=== PATIENT | female | born 1955 | race Caucasian/White ===

== ENCOUNTER 2025-06-19 12:41 | Emergency (ER) | payer SELFPAY ==
--- NOTE | ~2025-06-19 | XR_ITS ---
EXAMINATION: XR CHEST CLINICAL INFORMATION: trauma COMPARISON: None available. TECHNIQUE: AP view of the chest was obtained. FINDINGS: The cardiac, hilar, and mediastinal contours are normal. Lungs demonstrate mild linear atelectasis left base. Lungs otherwise clear. No pneumothorax or effusion. No focal osseous or soft tissue abnormality. No fracture evident. Moderate degenerative changes in both shoulder joints and throughout the spine. XR/XR chest 1V IMPRESSION: No acute findings in the thorax. Electronically signed by: Everette Perez MD 06/19/2025 02:21 PM EDT
--- NOTE | ~2025-06-19 | XR_ITS ---
EXAMINATION: XR KNEE 4 OR MORE VIEWS LEFT HISTORY: L knee lac COMPARISON: There are no prior studies available for comparison. FINDINGS: Four views of the left knee are submitted. Osseous mineralization is normal. There is no fracture or dislocation. The joint spaces are preserved. There is a soft tissue injury involving the popliteal fossa. It is no joint effusion. XR/XR knee LT 4V IMPRESSION: Soft tissue injury involving the popliteal fossa. No osseous abnormality is identified. Electronically signed by: Berry Urbano MD 06/19/2025 02:21 PM EDT
[2025-06-19 12:48] VITALS: BP 184/130; PULSE 120
--- NOTE | 2025-06-19 12:52 | ECG_ITS ---
Test Reason : TACHYCARDIA Blood Pressure : */* mmHG Vent. Rate : 119 BPM Atrial Rate : 119 BPM P-R Int : 104 ms QRS Dur : 80 ms QT Int : 330 ms P-R-T Axes : * 15 15 degrees QTcB Int : 465 ms Sinus tachycardia with short LA Nonspecific ST abnormality Abnormal ECG No previous ECGs available Referred By: Generic ED Physician Electronically Signed By: JOURDAN TODD
[2025-06-19 12:57] VITALS: BP 179/113; PULSE 118; RESP 18; TEMP 36.5; O2SAT 93; BMI 31.0
[2025-06-19 13:18] VITALS: BP 179/113; PULSE 118; RESP 18; TEMP 36.5; O2SAT 93
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
[2025-06-19 14:00] VITALS: BP 168/90; PULSE 100; RESP 16; TEMP 36.5; O2SAT 94
[2025-06-19 14:06] LABS: MANUAL DIFF FLAG NO
[2025-06-19 14:08] LABS: Hematocrit 43.2 % (37.0-47.0); Hemoglobin 15.4 g/dl (12.0-16.0); Imm Gran Abs Auto 0.02 X10*3/uL (0.00-0.03); Imm Gran Pct Auto 0.3 % (0.0-0.4); Lymphocytes Absolute Auto 1.3 X10*3/uL (1.2-4.9); Mean Corpuscular HGB Conc 35.6 g/dl (31.0-35.0); Mean Corpuscular Hemoglobin 36.1 pg (27.0-33.0); Mean Corpuscular Volume 101.2 fL (80.0-98.0); NRBC Abs Auto 0.000 X10*3/uL (0.0-0.012); NRBC Pct Auto 0.0 /100WBC (0.0-0.2); Platelet Count 308 X10*3/uL (160-400); Red Blood Count 4.27 X10*6/uL (4.20-5.50); White Blood Count 7.3 X10*3/uL (4.8-10.8)
[2025-06-19 14:24] LABS: Alanine Aminotransferase 14 U/L (0-31); Albumin Level 4.1 g/dL (3.5-5.0); Alkaline Phosphatase 94 U/L (39-117); Anion Gap 13 (12-20); Aspartate Amino Transferase 17 U/L (5-31); Blood Urea Nitrogen 6 mg/dL (9-16); Calcium 7.8 mg/dL (8.4-10.2); Carbon Dioxide 25 mmol/L (22-29); Chloride 105 mmol/L (96-108); Creatinine Clr Calc Pharmacy 111.9; Estimated Glomerular Filt Rate > 60; Potassium 3.3 mmol/L (3.3-5.1); Sodium 140 mmol/L (135-145); Total Protein 6.9 g/dL (6.5-8.0)
--- OUTSIDE RECORDS SUMMARY | 2025-06-19 14:37 | XMS_ITS | Encounter Summary ---
Author Organization [facility] Address [address] [place] [address] Phone Care Team Providers Care Wharf Attendant Name Role Phone Larisa Shelley MD Unavailable [phone] Erik Wesley MD Unavailable [phone] Samaria Mayers TITLE SEARCH MANAGER Unavailable [phone] Samaria Mayers TITLE SEARCH MANAGER Primary Care Provider [phone] Erik Wesley MD Unavailable [phone] Unknown, Unknown Primary Care Provider Og medrano Encounter Details Date Type Department Care Team (Late st Contact Info) Description 05/12/2021 Procedure Pass [facility], Ct Scan - [address] [address] Social History Tobacco Use Types Packs/Day Years Used Date Smoking Tobacco: Former Cigarettes 0.5 10 0 11/23/2001 - 11/23/2011 Smokeless Tobacco: Never Alcohol Use Standard Drinks/Week Comments Yes 7 (1 standard drink = 0.6 oz pur e alcohol) 1 wine cooler daily Child or Family Care Answer Date Record ed Do you have problems with on e of the following making it difficult for you to work, study, or receive health care? No 05/12/2021 Education Answer Date Recorded Are you interested in help w ith more adult education (for example, completing high school, GED, job training, learning the Bengali language, technical skills, or developing parenting skills)? No 05/12/2021 Are you concerned about learning? Not on file 05/12/2021 Not on file 05/12/2021 Not on file 05/12/2021 Food Answer Date Recorded Within the past 6 months we worried whether our food would run out before we got money to buy more. Never True 05/12/2021 Within the past 6 months the food we bought just didn't last and we didn't have enough money to get more. Never True Paying for Meds Answer Date Recorded Do you have trouble paying for medicines? No 05/12/2021 Paying Utility Bills Answer Date Record ed Do you have trouble paying your heating or elect ricity bill? No 05/12/2021 Transportation Answer Date Recorded Has the lack of transportati on kept you from medical appointments or from getting medications? No 05/12/2021 Comments Unknown Sex and Gender Information Value Date Recorded Sex Assigned at Female 06/23/2021 6:03 PM EDT Legal Sex Female 9:52 PM EDT Gender Identity Not on file Sexual Orientation Not on file documented as of this encounter Plan of Treatment Not on file documented as of this encounter Visit Diagnoses Not on filedocumented in this encounter Additional Health Concerns Assessment Noted Time PHQ-2 Depression Total Score: 0 05/12/20 9:58 AM EDT documented as of this encounter Care Teams Wharf Attendant Relationship Specialty Start Date End Date Samaria Mayers NP [address] [place] [address] juan PCP - General Family Medicine 05/14/18 12/31/23 Unknown, Love, PCP - General 01/01/24 Larisa Shelley MD [address] [place] [address] Historical LMR Provider 08/07/17 2 Erik Wesley MD [address] [place] [address] Historical LMR Provider 08/07/17 Samaria Mayers NP [address] [place] [address] juan [email or web address] Historical LMR Provider 08/07/17 Erik Wesley MD [address] [place] [address] [email or web address] Insurance Assigned Provider 08/29/20 01/29/22 documented as of this encounter Additional Source Comments The information contained in this document represents components of the legal health record. It is not the complete legal health record.[facility]
--- OUTSIDE RECORDS SUMMARY | 2025-06-19 14:37 | XMS_ITS | Encounter Summary ---
Author Organization [facility] Address [address] [place] [address] Phone Care Team Providers Care Real Estate Processor Name Role Phone Larisa Shelley MD Unavailable [phone] Erik Wesley MD Unavailable [phone] Samaria Mayers ALL PURPOSE CLERK Unavailable [phone] Samaria Mayers ALL PURPOSE CLERK Primary Care Provider [phone] Erik Wesley MD Unavailable [phone] Unknown, Unknown Primary Care Provider Og medrano Encounter Details Date Type Department Care Team (Late st Contact Info) Description 06/23/2021 Procedure Pass [facility], Ct Scan - [address] [address] Social History Tobacco Use Types Packs/Day Years [...] high school, GED, job training, learning the Kazakh language, technical skills, or developing parenting skills)? [...] on file documented as of this encounter Functional Status * Calculated C-SSRS Risk Score (Lifetime/Recent) Answer Date of Assessment Author No Risk Indicated 06/23/2021 6:01 PM EDT Nahun Miranda RN * Whiteside Suicide Severity Rating Scale (Screener/Recent Self-Report) Question Answer Date of Assessment Author 1. Wish to be (Past 1 Month) No 021 6:01 PM EDT Nahun Miranda RN 2. Non-Specific Active Suici jose manuel Thoughts (Past 1 Month) No 06/23/2021 6:01 PM EDT Lico Miranda RN 6. Suicidal Behavior (Lifetime) No 6:01 PM EDT Nahun Miranda RN documented as of this encounter Plan of Treatment Not on file documented as of this encounter Visit Diagnoses Not on filedocumented in this encounter Additional Health Concerns Assessment Noted Time PHQ-2 Depression Total Score: 0 05/12/20 9:58 AM EDT documented as of this encounter Care Teams Real Estate Processor Relationship Specialty Start Date End Date Samaria Mayers NP [address] [place] [address] juan PCP - General Family Medicine 05/14/18 12/31/23 Unknown, Love, PCP - General 01/01/24 Larisa Shelley MD [address] [place] [address] Historical LMR Provider 08/07/17 2 Erik Wesley MD [address] [place] [address] Historical LMR Provider 08/07/17 Samaria Mayers NP [address] [place] [address] juan Historical LMR Provider 08/07/17 Erik Wesley MD [address] [place] [address] Insurance Assigned Provider 08/29/20 01/29/22 documented as of this encounter Additional Source Comments The information contained in this document represents components of the legal health record. It is not the complete legal health record.[facility]
--- OUTSIDE RECORDS SUMMARY | 2025-06-19 14:37 | XMS_ITS | Clinical Summary ---
Author Organization [facility] Address [address] [place] [address] Phone Care Team Providers Care Bale Breaker Operator Name Role Phone Erik Wesley MD Unavailable [phone] Samaria Mayers NP Unavailable [phone] Unknown, Unknown Primary Care Provider Og medrano Allergies Active Allergy Reactions Criticality Noted Date Comments Sulfa (Sulfonamide Antibiotics) Hives 04/22 Medications omega-3 fatty acids-fish oil 340-1,000 mg Cap Take 1 capsule by mouth 2 (two) times a day. Active albuterol 90 mcg/actuation inhaler Inhale 2 puffs into the lungs every 6 (six) hours as needed for wheezing or shortness of breath/dyspnea . 8 g 1 Active calcium carbonate (OS-RODNEY) 1,250 mg (500 mg elemental) tablet Take 1 tablet (1,250 mg total) by mouth 2 (two) times a day with meals. 60 tablet 1 Active cholecalciferol (VITAMIN D3) 25 MCG (1,000 unit) tablet Take 1 tablet (1,000 Units total) by mouth daily. 30 tablet 6 1 Active atorvastatin (LIPITOR) 40 MG tabletIndications: Mixed hyperlipidemia TAKE 1 TABLET BY MOUTH EVERY DAY 90 tablet 3 Active SPIRIVA WITH HANDIHALER 18 mcg inhalation capsuleIndications :Chronic obstructive pulmonary disease INHALE 1 CAPSULE VIA HANDIHALER ONCE DAILY AT THE SAME TIME EVERY DAY 90 capsule 1 3 Active betamethasone dipropionate 0.05 % ointment Apply topically 2 (two) times a day. To rash on neck 30 g 3 Active albuterol 90 mcg/actuation inhalerIndications :Chronic obstructive pulmonary disease INHALE 2 PUFFS INTO THE LUNGS EVERY 4 HOURS NEEDED FOR WHEEZE 8.5 g 1 3 Active albuterol 90 mcg/actuation inhaler Inhale 2 puffs into the lungs every 6 (six) hours as needed for wheezing. 8 g 2 3 Active Active Problems Problem Noted Date Diagnosed Date Azotemia 06/24/2021 Assessment & Plan (06/25/2021 5:51 PM EDT): Etiology: It is possible that the patient had a slight dehydration episode which resulted in uremia which then in turn caused further nausea and vomiting and precipitated an acute azotemia. Thankfully, the patient's BUN and creatinine have improved with IV fluids, her mental status is improved today but her oral intake remains poor and she still had ongoing nausea this morning with breakfast. A CT scan of her head revealed no hydrocephalus, no malignancy appearance but with diffuse calcifications throughout the brain which are nonspecific. Nutrition consultation appreciated, attempting to advance the patient's diet and monitor for p.o. intake improvement. Once the patient is able to maintain her nutrition and volume status, can be discharged home for outpatient follow-up. Hopeful that the patient will be able to be discharged tomorrow after another day of monitoring, monitoring intake with dinner and then if tomorrow she is feeling well can go home. She denies abdominal pain, denies ongoing nausea. Morning cortisol was normal, PTH was elevated, ionized calcium was low, repeat calcium on BMP improving. Renal ultrasound was normal Sodium is stable at 136 Hyperphosphatemia 06/24/2021 Assessment & Plan (06/25/2021 5:52 PM EDT): S/p IVF, improved Vitamin D is low so will replete orally Replete calcium and phos, recheck with labs tomorrow H/O prolonged Q-T interval on ECG 05/12/2021 Impaired fasting glucose 05/12/2021 Chronic obstructive pulmonary disease 05/10/2018 Assessment & Plan (06/24/2021 5:26 PM EDT): Continue home meds Essential hypertension 05/10/2018 Assessment & Plan (06/24/2021 5:26 PM EDT): BP low here Hold home meds History of smoking 05/10/2018 Mixed hyperlipidemia 05/10/2018 Immunizations Immunization Administration Dates Next Due COVID-19 (Pre-08/14) Moderna Vaccine, mRNA, PF 0 03/24/2021,02/24/2021 INFLUENZA, SPLIT VIRUS, TRIVALENT W/ PRESERVATIV E IM 10/19/2015 Influenza Quadrivalent Preservative Free IM 12/2019 Influenza, Unspecified Formulation 07/25/2020 PPD Test 06/11/2018 Pneumococcal conjugate PCV13 05/08/2020 Pneumococcal polysaccharide PPSV23 05/12/2021 Td (adult) 5 Lf Tetanus Toxoid, PF, Adsorbed Tdap 06/01/2012 Zoster recombinant 07/25/2020 Family History Medical History Relation Comments No Known Problems Brother Alcohol abuse Father smoker Cancer Father at 66 Breast cancer Mother at 44 Cancer Mother Alcohol abuse Sister 1 Liver disease Sister 1 COPD Sister 2 No Known Problems Son 1 No Known Problems Son 2 Relation Status Comments Brother Alive Father Mother Sister 1 Sister 2 Alive Son 1 Alive 41 Son 2 Alive 43 Social History Tobacco Use Types Packs/Day Years Used Date Smoking Tobacco: Former Cigarettes 0.3 40 0 11/23/1971 - 11/23/2011 Smokeless Tobacco: Never Alcohol Use Standard Drinks/Week Comments Yes 7 (1 standard drink = 0.6 oz pur e alcohol) 1 beer daily Child or Family Care Answer Date Record ed Do you have problems with on e of the following making it difficult for you to work, study, or receive health care? No 01/04/2023 Education Answer Date Recorded Are you interested in more education? Not on hayde e 01/04/2025 Are you concerned about learning? Not on file 01/04/2025 No 01/04/2025 No 01/04/2025 Food Answer Date Recorded Within the past 6 months we worried whether our food would run out before we got money to buy more. Sometimes True 023 Within the past 6 months the food we bought just didn't last and we didn't have enough money to get more. Never True 12/21 Residential Stability Answer Date Recor ded What is your housing situation today? I have mary penaloza 01/04/2023 How many times have you move d in the past 12 months? Zero (I did not move) 01/04/2023 Paying for Meds Answer Date Recorded Do you have trouble paying for medicines? No 01/04/2023 Paying Utility Bills Answer Date Record ed Do you have trouble paying your heating or elect ricity bill? No 01/04/2023 Transportation Answer Date Recorded Has the lack of transportati on kept you from medical appointments or from getting medications? No 01/04/2023 Unemployment Answer Date Recorded Are you currently unemployed or working on a part-time or temporary basis, and looking for work? No 01/04/2023 Digital Access Answer Date Recorded No 03/20/2023 No 03/20/2023 Reliable internet access at home? Not on file 03/20/2023 Device with a working camera? Not on file Intimate Partner Violence Answer Date R ecorded Denied Basic Needs Not on file 01/04/2023 In the past 12 months have y ou been in a relationship with a person who hurts, threatens, or tries to control you? No 01/04/2023 Worried food would run out Not on file 01/04 In the past 12 months have y ou been in a relationship with a person who hurts, threatens, or tries to control you? No 01/04/2023 Comments Unknown Sex and Gender Information Value Date Recorded Sex Assigned at Female 06/23/2021 6:03 PM EDT Legal Sex Female 9:52 PM EDT Gender Identity Not on file Sexual Orientation Not on file Last Filed Vital Signs Vital Sign Reading Time Taken Comments Blood Pressure 128/78 01/04/2023 11:16 AM EDT Pulse 61 01/04/2023 11:16 AM EDT Temperature 36.7 C (98 F) 01/04/2023 11:16 AM EDT Respiratory Rate 16 06/26/2021 9:28 AM EDT Oxygen Saturation 97% 01/04/2023 11:16 AM EDT Inhaled Oxygen Concentration - - Weight 92.5 kg (204 lb) 01/04/2023 11:16 AM EDT Height 169.5 cm (5' 6.73 ) 01/04/2023 11:16 AM E DT Body Mass Index 32.21 01/04/2023 11:16 AM EDT Plan of Treatment Health Maintenance Due Date Last Done Comments SMOKING Hx and SMOKELESS TOBACCO SCREENING 1970 COLONOSCOPY 2002 FIT TEST 2002 FOBT 2002 SIGMOIDOSCOPY 2002 VIRTUAL COLONOSCOPY 2002 RSV VACCINE (1 - Risk 60-74 years 1-dose series) 2017 ZOSTER VACCINES (2 of 2) 09/19/2020 07/25/2020 OSTEOPOROSIS SCREENING INITIAL (ONE-TIME) 2022 BLOOD PRESSURE 07/07/2023 01/04/2023 DEPRESSION SCREENING 01/05/2024 01/04/2023 COLOGUARD 06/11/2024 06/11/2021 COLORECTAL CANCER SCREENING 06/11/2024 COVID-19 VACCINE ( season) 2024 11/15/2021, 03/24/2021, 02/24/2021 MAMMOGRAM 01/04/2025 01/04/2023 SCREENING FOR DIABETES 01/04/2026 01/04/2023, 2022 PNEUMOCOCCAL VACCINES (50+ years) (3 of 3 - PCV20 or PCV21) 05/12/2026 05/12/2021, 05/08/2020 LIPID PANEL 01/05/2028 01/04/2023, 04/23, 05/12/2021, Additional history exists PAP SMEAR 01/05/2028 01/04/2023, 04/27/2017 Adult Td,Tdap Booster 01/04/2033 01/04/2023, 012 HEPATITIS C SCREENING Completed 05/08/2020, 020 HEPATITIS A VACCINES Aged Out No long er eligible based on patient's age to complete this topic HIB VACCINES Aged Out No longer eligi ble based on patient's age to complete this topic MENINGOCOCCAL VACCINES (ACWY) Aged Out No longer eligible based on patient's age to complete this topic MENINGOCOCCAL VACCINES (B) Aged Out N o longer eligible based on patient's age to complete this topic Medical Devices Not on file Procedures Procedure Name Priority Date/Time Associated Diagnosis Comments LIPID PANEL Routine 01/04/2023 12:17 PM EDT Mixed hyperlipidemia BI MAMMOGRAM SCREENING (BILATERAL) Routine 01/04/2023 11:55 AM EDT Encounter for screening mammogram for malignant neoplasm of breast PAP TEST Routine 01/04/2023 12:00 AM EDT HEPATITIS C ANTIBODY, QUALITATIVE Routine 05/08/2020 10:38 AM EDT Routine general medical examination at a [facility] care facility from Last 3 Months or Most Recently Relevant to Health Maintenance Results * (ABNORMAL) Lipid panel (01/04/2023 12:17 PM EDT) HDL 45 mg/dL [facility] Comment: Interpretation <40 mg/dL: Low HDL cholesterol (major risk factor for CHD) Greater than or equal to 60 mg/dL: High HDL cholesterol ( negative risk factor for CHD) HDL - cholesterol is affected by a number of factors, e.g. smoking, excerise, hormones, sex and age. CHOLESTEROL 186 0 - 240 mg/dL [facility] TRIGLYCERIDES 327(H) 30 - 160 mg/dL [facility] LDL 76 50 - 129 mg/dL [facility] Comment: LDL levels in terms of risk for coronary heart disease: <100 mg/dL: Optimal 100-129 mg/dL: Near or above optimal 130-159 mg/dL: Borderline high 160-189 mg/dL: High >190 mg/dL: Very High CARDIAC RISK RATIO 4.1 3.3 - 4.4 C [facility] Blood 01/04/2023 12:1 7 PM EDT 01/04/2023 12:23 PM EDT us Samaria Mayers NP LAB BLOOD ORDERABLES Final Resu lt [facility] [address] [place], [place] [id number] * Pap Test (01/04/2023 12:00 AM EDT) 01/04/2023 01/05/2023 9:3 9 AM EDT Narrative SEE NARRATIVE - 01/11/2023 11:24 AM EDT [address] [address] Bolt Threader: Gewn Currie MD TIPPLE MECHANIC Cytology Report FINAL DIAGNOSIS A. PAP SMEAR (SUREPATH) CE: SPECIMEN ADEQUACY: Satisfactory for evaluation; transformation zone present. INTERPRETATION: NEGATIVE FOR INTRAEPITHELIAL LESION OR MALIGNANCY. Electronically Signed Out By: CHAIM Mena(ASCP) The Pap test is a screening test primarily for squamous cancers and precursors and has associated false-negative and false-positive results. New technologies such as liquid-based preparations may decrease but will not eliminate all false-negative results. Regular sampling and follow-up of unexplained clinical signs and symptoms are recommended to minimize false negative results. PROCEDURES/ADDENDA HPV Testing (Requested) Ordered Date: 01/05/2023 A. PAP SMEAR (SUREPATH) CE: Human Papilloma Virus Test NEGATIVE for high-risk Human Papilloma Virus types 16, 18, 45 and the Other high risk probe set (Includes 31, 33, 35, 39, 51, 52, 56, 58, 59, 66, 68) Note: Testing performed by [facility] HR-HPV analysis. Clinical correlation is advised. This HPV test was performed at [facility], [address] [place] [address]. This test has been FDA approved for [facility] cervical cytology specimens. The accuracy and precision of this test for all other specimen sources has been verified in the Cytopathology Laboratory of the [facility] and has not been cleared or approved by the U.S. Food and Drug Administration. Clinical correlation is advised. CLINICAL HISTORY Date of Last Menstrual Period: Not Provided Menstrual History: Post Menopausal Other Clinical Conditions: Screening Pap SPECIMEN SOURCE A: PAP SMEAR (SUREPATH) CE Patient Name: LISBETH JASMINE : 1955 (Age: 67) Sex: F Institution: [facility] Location: [facility] Date of Collection: 01/04/2023 Date of Reported: 01/11/2023 11:24 Results to: Samaria Mayers MSN, BSN us Samaria Mayers ANALYTIC MANAGER CYTOLOGY ORDERABLES Final Resul t SEE NARRATIVE * Hepatitis C antibody, qualitative (05/08/2020 10:38 AM EDT) HCV NON-REACTIV E NON-REACTI VE [facility] Blood 05/08/2020 10:3 8 AM EDT 05/08/2020 10:42 AM EDT us Erik Wesley MD LAB BLOOD ORDERABLES Final Re sult [facility] [address] [place] [address] from Last 3 Months or Most Recently Relevant to Health Maintenance Insurance CIGNA PPO CIGNA PPO Member Subscriber Plan / Payer (Ef fective 2021-Present) Name:Lisbeth Jasmine Relation to Subscriber:Self Name:Lisbeth Jasmine Payer ID:[id number] (NA) Type:PPO Address: [address] [place] [id number] CIGNA PPO CIGNA PPO CIGNA PPO CIGNA PPO Advance Directives For more information, please contact: [phone] (9AM - 5PM [facility], Monday-Monday) * Full Code (Latest Code Status on File) Date Activated Date Inactivated Comments 06/24/2021 1:32 AM Question Answer Comments Code Status Confirmed With: Patient Care Teams Bale Breaker Operator Relationship Specialty Start Date End Date Unknown, Unknown, PCP - General 01/01/24 Erik Wesley MD [address] [place] [id number] [email or web address] Historical LMR Provider 08/07/17 Samaria Mayers NP [address] [place] [address] juan [email or web address] Historical LMR Provider 10/16/17 Additional Source Comments The information contained in this document represents components of the legal health record. It is not the complete legal health record.[facility]
--- OUTSIDE RECORDS SUMMARY | 2025-06-19 14:37 | XMS_ITS | Clinical Summary ---
Author Organization [facility] Facility Address [address] [address] Care Team Providers Care Distribution Spec Name Role Phone Samaria Mayers LACE BURN OUT TENDER Primary Care Provider Unavailabl e Allergies Active Allergy Reactions Criticality Noted Date Comments Sulfa Antibiotics Hives 05/10/2018 Medications albuterol HFA (PROVENTIL HFA;VENTOLIN HFA) 108 (90 Base) MCG/ACT inhaler Inhale 2 puffs 06/26/2021 Active atorvastatin (LIPITOR) 40 MG tablet Take 40 mg by mouth daily 04/07/2021 Active calcium carbonate (OS-RODNEY) 1250 (500 Ca) MG tablet Take 1,250 mg by mouth 06/26/2021 Active cholecalciferol (VITAMIN D-3) 25 MCG (1000 UT) tablet Take 1,000 Units by mouth daily 08/06/2021 Active pantoprazole (PROTONIX) 40 MG EC tablet Take 40 mg by mouth daily 06/26/2021 Active tiotropium (SPIRIVA) 18 MCG per inhalation capsule Place 18 mcg into inhaler and inhale daily 06/23/2021 Active Quinton-3 1000 MG capsule Take 1 capsule by mouth twice a day Active MULTIPLE VITAMINS PO Take 1 tablet by mouth daily 06/26/2021 Active Active Problems Problem Noted Date Diagnosed Date Hyperphosphatemia 06/24/2021 Overview (09/15/2021): Last Assessment & Plan: S/p IVF, improved Vitamin D is low so will replete orally Replete calcium and phos, recheck with labs tomorrow Azotemia 06/24/2021 Overview (09/15/2021): Last Assessment & Plan: Etiology: It is possible that the patient [...] was normal Sodium is stable at 136 Essential hypertension 05/10/2018 Overview (09/15/2021): Last Assessment & Plan: BP low here Hold home meds Mixed hyperlipidemia 05/10/2018 Immunizations Immunization Administration Dates Next Due Influenza TIV (IM) 10/19/2015 Influenza, Quadrivalent, Preservative Free 07/25 Moderna SARS-COV-2 03/24/2021,02/24/2021 PPD Test 06/11/2018 Pneumococcal Conjugate 13-Valent 05/08/2020 Pneumococcal Polysaccharide 05/12/2021 Shingrix 07/25/2020 Tdap 06/01/2012 Family History Medical History Relation Comments Alcohol abuse Father Cancer Father Breast cancer Mother Cancer Mother Alcohol abuse Sister COPD Sister Liver disease Sister Relation Status Comments Father Mother Sister Social History Tobacco Use Types Packs/Day Years Used Date Smoking Tobacco: Former Cigarettes 0.5 10 0 11/23/2001 - 11/23/2011 Alcohol Use Standard Drinks/Week Comments Yes 7 (1 standard drink = 0.6 oz pur e alcohol) Comments Unknown Sex and Gender Information Value Date Recorded Sex Assigned at Not on file Legal Sex Female 12:59 PM EDT Gender Identity Not on file Sexual Orientation Not on file 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 Not on file Not on file Not on file Plan of Treatment Health Maintenance Due Date Last Done Comments Breast Cancer Screening 1955 Colorectal Cancer Screening: Annual FOBT 2006 Colorectal Cancer Screening: Colonoscopy 2006 Colorectal Cancer Screening: Sigmoidoscopy 2006 Influenza Vaccine (#1) 2025 , 10/19/2015 Pneumococcal Vaccine: 50+ Years (3 of 3 - PCV20 or PCV21) 05/12/2026 05/12/2021, 05/08/2020 Pneumococcal Vaccine: Peds ( 0 to 5 Years) and At-Risk Patients (6 to 49 Years) Discontinued 05/12/2021, 05/08/2020 Hepatitis B Vaccine Aged Out No longe r eligible based on patient's age to complete this topic Insurance [facility] Care Teams Distribution Spec Relationship Specialty Start Date End Date Samaria Mayers NP PCP - General Nurse Practitioner 09/15/21
--- OUTSIDE RECORDS SUMMARY | 2025-06-19 14:37 | XMS_ITS | Encounter Summary ---
Author Organization [facility] Address [address] [place] [id number] Phone Care Team Providers Care Bowling Ball Finisher Name Role Phone Larisa Shelley MD Unavailable [phone] Erik Wesley MD Unavailable [phone] Samaria Mayers ORTHODONTIC ASSISTANT Unavailable [phone] Samaria Mayers ORTHODONTIC ASSISTANT Primary Care Provider [phone] Erik Wesley MD Unavailable [phone] Unknown, Unknown Primary Care Provider Og medrano Encounter Details Date Type Department Care Team (Late st Contact Info) Description 06/23/2021 Procedure Pass [facility], Ct Scan - [address] [address] Social History Tobacco Use Types Packs/Day Years [...] high school, GED, job training, learning the Japanese language, technical skills, or developing parenting skills)? [...] 6:01 PM EDT Nahun Miranda RN * Avery Suicide Severity Rating Scale (Screener/Recent Self-Report) Question [...] documented as of this encounter Care Teams Bowling Ball Finisher Relationship Specialty Start Date End Date Samaria Mayers NP [address] [place] [address] juan PCP - General Family Medicine 05/14/18 12/31/23 Unknown, Love, PCP - General 01/01/24 Larisa Shelley MD [address] [place] [id number] Historical LMR Provider 08/07/17 2 Erik Wesley MD [address] [place] [address] Historical LMR Provider 08/07/17 Samaria Mayers NP [address] [place] [address] juan Historical LMR Provider 08/07/17 Erik Wesley MD [address] [place] [address] Insurance Assigned Provider 08/29/20 01/29/22 documented as of this encounter Additional Source Comments The information contained in this document represents components of the legal health record. It is not the complete legal health record.[facility]
--- OUTSIDE RECORDS SUMMARY | 2025-06-19 14:37 | XMS_ITS | Encounter Summary ---
Author Organization [facility] Address [address] [place] [address] [place] [address] Phone Care Team Providers Care Tankman Name Role Phone Larisa Shelley MD Unavailable [phone] Erik Wesley MD Unavailable [phone] Samaria Mayers POLITICAL WORKER Unavailable [phone] Samaria Mayers POLITICAL WORKER Primary Care Provider [phone] Erik Wesley MD Unavailable [phone] Unknown, Unknown Primary Care Provider Og medrano Encounter Details Date Type Department Care Team (Late st Contact Info) Description 07/06/2021 Procedure Pass , Ct Scan - [address] [address] Social History Tobacco Use Types Packs/Day Years Used Date Smoking Tobacco: Former Cigarettes 0.5 10 0 11/23/2001 - 11/23/2011 Smokeless Tobacco: Never Alcohol Use Standard Drinks/Week Comments Yes 7 (1 standard drink = 0.6 oz pur e alcohol) 1 wine cooler daily, occ Child or Family Care Answer Date Record ed Do you have problems with on e of the following making it difficult for you to work, study, or receive health care? No 05/12/2021 Education Answer Date Recorded Are you interested in help w ith more adult education (for example, completing high school, GED, job training, learning the Panamanian language, technical skills, or developing parenting skills)? [...] documented as of this encounter Care Teams Tankman Relationship Specialty Start Date End Date Samaria Mayers NP [address] [place] [address] juan PCP - General Family Medicine 05/14/18 12/31/23 Unknown, Unknown, PCP - General 01/01/24 Larisa Shelley MD [address] [place] [address] Historical LMR Provider 08/07/17 2 Erik Wesley MD [address] [place] [address] Historical LMR Provider 08/07/17 Samaria Mayers NP [address] [place] [address] juan [email or web address] Historical LMR Provider 08/07/17 Erik Wesley MD [address] [place] [address] [email or web address] Insurance Assigned Provider 08/29/20 01/29/22 documented as of this encounter Additional Source Comments The information contained in this document represents components of the legal health record. It is not the complete legal health record.[facility]
--- OUTSIDE RECORDS SUMMARY | 2025-06-19 14:37 | XMS_ITS | Encounter Summary ---
Author Organization [facility] Address [address] [place] [address] Phone Care Team Providers Care Ferruler Name Role Phone Larisa Shelley MD Unavailable [phone] Erik Wesley MD Unavailable [phone] Samaria Mayers ASSEMBLER TUBING Unavailable [phone] Samaria Mayers ASSEMBLER TUBING Primary Care Provider [phone] Erik Wesley MD Unavailable [phone] Unknown, Unknown Primary Care Provider Og medrano Encounter Details Date Type Department Care Team (Late st Contact Info) Description 06/25/2021 Procedure Pass [facility], Ct Scan - [address] [address] Social History Tobacco Use Types Packs/Day Years [...] high school, GED, job training, learning the Romansh language, technical skills, or developing parenting skills)? [...] documented as of this encounter Care Teams Ferruler Relationship Specialty Start Date End Date Samaria Mayers NP [address] [place] [address] juan PCP - General Family Medicine 05/14/18 12/31/23 Unknown, Love, PCP - General 01/01/24 Larisa Shelley MD [address] [place] [address] Historical LMR Provider 08/07/17 2 Erik Wesley MD [address] [place] [address] Historical LMR Provider 08/07/17 Samaria Mayers NP [address] [place] [address] juan [email or web address] Historical LMR Provider 08/07/17 Erik Wesley MD [address] [place] [address] [email or web address] Insurance Assigned Provider 08/29/20 01/29/22 documented as of this encounter Additional Source Comments The information contained in this document represents components of the legal health record. It is not the complete legal health record.[facility]
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
[2025-06-19] MEDS: Diphth,Pertus(ACell),Tet Adult 0.5 ML SYRINGE IM (15:09)
[2025-06-19] MEDS: Magnesium Sulfate/H2O 2 GM/50 ML PIGGYBACK IV (15:58)
[2025-06-19] MEDS: Lidocaine HCl 1%/Epi 1:100,000 20 ML VIAL INFILTRATI (16:44)
[2025-06-19 17:28] VITALS: BP 127/85; PULSE 101; RESP 21; O2SAT 96
[2025-06-19 17:51] VITALS: BP 127/85; PULSE 101; RESP 21; TEMP -17.7; TEMP 0; O2SAT 96
--- NOTE | 2025-06-19 17:51 | PC.NURSE ---
ABx applied around wound site and nonadherent pad applied and wrapped per
== END 2025-06-19 17:52 | disposition home or self-care (01) ==
PROVIDERS: Emergency Provider Emergency Medicine
DX: S71.112A Laceration without foreign body, left thigh, initial encounter (principal); R00.0 Tachycardia, unspecified; M25.562 Pain in left knee; W26.9XXA Contact with unspecified sharp object(s), initial encounter; Y93.9 Activity, unspecified; Y92.810 Car as the place of occurrence of the external cause; Y99.8 Other external cause status; Z23 Encounter for immunization
CPT/HCPCS: 12034; 36415; 71045; 73564; 80053; 85025; 90471; 90715; 93005; 96365; 96375; 99284; 99285; J2004; J2270; J2405; J3475

== ENCOUNTER → 2025-06-19 12:52 | Outpatient (BNV) | payer MEDICARE, SELFPAY | PROVIDERS: Emergency Provider Emergency Medicine; Visit Provider Internal Medicine | DX: R00.0 Tachycardia, unspecified (principal) | CPT/HCPCS: 93010 ==

== ENCOUNTER → 2025-06-19 13:12 | Outpatient (BNV) | payer MEDICARE, SELFPAY | PROVIDERS: Emergency Provider Emergency Medicine; Visit Provider Radiology Diagnostic Radiology | DX: S81.012A Laceration without foreign body, left knee, initial encounter (principal); Z04.3 Encounter for examination and observation following other accident | CPT/HCPCS: 71045 ==

== ENCOUNTER 2025-07-03 08:37 | Emergency (ER) | payer OTHER, SELFPAY ==
[2025-07-03 08:41] VITALS: BP 187/85; PULSE 88; RESP 16; TEMP 36.8; O2SAT 97; BMI 23.4
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
[2025-07-03 10:00] VITALS: BP 146/91; PULSE 80; RESP 15; TEMP 36.8; O2SAT 96
--- NOTE | 2025-07-03 10:35 | PC.NURSE ---
sutures removed by NEMESIO. bacitracin applied to affected area. wrapped w/ nonstick/gauze by tech.
[2025-07-03 10:39] VITALS: BP 146/91; PULSE 80; RESP 15; TEMP 36.8; O2SAT 96
--- OUTSIDE RECORDS SUMMARY | 2025-07-03 11:12 | XMS_ITS | Encounter Summary ---
Author Organization [facility] Address [address] [place] [address] [place] [address] Phone Care Team Providers Care Asbestos Abatement Technician Name Role Phone Larisa Shelley MD Unavailable [phone] Erik Wesley MD Unavailable [phone] Samaria Mayers FRYLINE ATTENDANT Unavailable [phone] Samaria Mayers FRYLINE ATTENDANT Primary Care Provider [phone] Erik Wesley MD Unavailable [phone] Unknown, Unknown Primary Care Provider Og medrano Encounter Details Date Type Department Care Team (Late st Contact Info) Description 05/12/2021 Procedure Pass [facility], Ct Scan - [address] [address] Social History Tobacco Use Types Packs/Day Years [...] high school, GED, job training, learning the Angolan language, technical skills, or developing parenting skills)? [...] documented as of this encounter Care Teams Asbestos Abatement Technician Relationship Specialty Start Date End Date Samaria Mayers NP [address] [place] [address] juan PCP - General Family Medicine 05/14/18 12/31/23 Unknown, Love, PCP - General 01/01/24 Larisa Shelley MD [address] [place] [address] Historical LMR Provider 08/07/17 2 Erik Wesley MD [address] [place] [address] Historical LMR Provider 08/07/17 Samaria Mayers NP [address] [place] [address] juan [email or web address] Historical LMR Provider 08/07/17 Erik Wesley MD [address] [place] [address] [email or web address] Insurance Assigned Provider 08/29/20 01/29/22 documented as of this encounter Additional Source Comments The information contained in this document represents components of the legal health record. It is not the complete legal health record.[facility]
--- OUTSIDE RECORDS SUMMARY | 2025-07-03 11:12 | XMS_ITS | Encounter Summary ---
Author Organization [facility] Address [address] [place] [address] [place] [address] Phone Care Team Providers Care Race Relations Adviser Name Role Phone Larisa Shelley MD Unavailable [phone] Erik Wesley MD Unavailable [phone] Samaria Mayers STOCK PREPARATION OPERATOR Unavailable [phone] Samaria Mayers STOCK PREPARATION OPERATOR Primary Care Provider [phone] Erik Wesley MD Unavailable [phone] Unknown, Unknown Primary Care Provider Og medrano Encounter Details Date Type Department Care Team (Late st Contact Info) Description 06/25/2021 Procedure Pass [facility], Ct Scan - [address] [address] Social History Tobacco Use Types Packs/Day Years [...] high school, GED, job training, learning the Anguillan language, technical skills, or developing parenting skills)? [...] documented as of this encounter Care Teams Race Relations Adviser Relationship Specialty Start Date End Date Samaria Mayers NP [address] [place] [address] juan PCP - General Family Medicine 05/14/18 12/31/23 Unknown, Love, PCP - General 01/01/24 Larisa Shelley MD [address] [place] [address] Historical LMR Provider 08/07/17 2 Erik Wesley MD [address] [place] [address] Historical LMR Provider 08/07/17 Samaria Mayers NP [address] [place] [address] juan [email or web address] Historical LMR Provider 08/07/17 Erik Wesley MD [address] [place] [address] [email or web address] Insurance Assigned Provider 08/29/20 01/29/22 documented as of this encounter Additional Source Comments The information contained in this document represents components of the legal health record. It is not the complete legal health record.[facility]
--- OUTSIDE RECORDS SUMMARY | 2025-07-03 11:12 | XMS_ITS | Clinical Summary ---
Author Organization [facility] Address [address] [place] [address] Phone Care Team Providers Care Warp Worker Name Role Phone Erik Wesley MD Unavailable Samaria Mayers NP Unavailable [phone] Unknown, Unknown Primary Care Provider Og [...] COLOGUARD 06/11/2024 06/11/2021 COLORECTAL CANCER SCREENING 06/11/2024 MAMMOGRAM 01/04/2025 01/04/2023 INFLUENZA VACCINE (#1) 2025 , 07/25/2020, 10/19/2015 COVID-19 VACCINE ( season) 2025 11/15/2021, 03/24/2021, 02/24/2021 SCREENING FOR DIABETES 01/04/2026 01/04/2023, 2022 PNEUMOCOCCAL [...] EDT Routine general medical examination at a health care facility from Last 3 Months or Most Recently Relevant to Health Maintenance Results * (ABNORMAL) Lipid panel (01/04/2023 12:17 PM EDT) HDL 45 mg/dL [facility] Comment: Interpretation <40 mg/dL: Low HDL cholesterol (major risk factor for CHD) Greater than or equal to 60 mg/dL: High HDL cholesterol ( negative risk factor for CHD) HDL - cholesterol is affected by a number of factors, e.g. smoking, excerise, hormones, sex and age. CHOLESTEROL 186 0 - 240 mg/dL [facility] TRIGLYCERIDES 327(H) 30 - 160 mg/dL [facility] LDL 76 50 - 129 mg/dL [facility] Comment: LDL levels in terms of risk for coronary heart disease: <100 mg/dL: Optimal 100-129 mg/dL: Near or above optimal 130-159 mg/dL: Borderline high 160-189 mg/dL: High >190 mg/dL: Very High CARDIAC RISK RATIO 4.1 3.3 - 4.4 C [facility] Blood 01/04/2023 12:1 7 PM EDT 01/04/2023 12:23 PM EDT us Samaria Mayers NP LAB BLOOD ORDERABLES Final Resu lt [address] [address] * Pap Test (01/04/2023 12:00 AM EDT) 01/04/2023 01/05/2023 9:3 9 AM EDT Narrative SEE NARRATIVE - 01/11/2023 11:24 AM EDT [address] [address] Medical Laboratory Scientist: Gwen Currie MD SUPERVISORY CIVIL ENGINEER Cytology Report FINAL DIAGNOSIS A. PAP SMEAR [...] 59, 66, 68) Note: Testing performed by [facility] HR-HPV analysis. Clinical correlation is advised. This HPV test was performed at [facility], [address] [place] [address]. This test has been FDA approved for [facility] cervical cytology specimens. The accuracy and precision of this test for all other specimen sources has been verified in the Cytopathology Laboratory of the [facility] and has not been cleared or approved by the U.S. Food and Drug Administration. Clinical correlation is advised. CLINICAL HISTORY Date of Last Menstrual Period: Not Provided Menstrual History: Post Menopausal Other Clinical Conditions: Screening Pap SPECIMEN SOURCE A: PAP SMEAR (SUREPATH) CE Patient Name: LISBETH JASMINE : 1955 (Age: 67) Sex: F Institution: [facility] Location: [facility] Date of Collection: 01/04/2023 Date of Reported: 01/11/2023 11:24 Results to: Samaria Mayers MSN, BSN us Samaria Mayers BOOSTER STATION OPERATOR CYTOLOGY ORDERABLES Final Resul t SEE NARRATIVE * Hepatitis C antibody, qualitative (05/08/2020 10:38 AM EDT) HCV NON-REACTIV E NON-REACTI VE [facility] Blood 05/08/2020 10:3 8 AM EDT 05/08/2020 10:42 AM EDT us Erik Wesley MD LAB BLOOD ORDERABLES Final Re sult Performing Organization Address City/[facility]/ZIP Co de Phone Number [facility] [address] [place] [address] from Last 3 Months or Most Recently Relevant to Health Maintenance Insurance CIGNA PPO CIGNA PPO CIGNA PPO CIGNA PPO Member Subscriber Plan / Payer (Ef fective 2021-Present) Name:Lisbeth Jasmine Relation to Subscriber:Self Name:Lisbeth Jasmine Payer ID:[id number] (NAIC) Type:PPO Address: [place] [id number] CIGNA PPO CIGNA PPO Advance Directives For more information, please contact: [phone] (9AM - 5PM [facility], Monday-Monday) * Full Code (Latest Code Status on File) Date Activated Date Inactivated Comments 06/24/2021 1:32 AM Question Answer Comments Code Status Confirmed With: Patient Care Teams Warp Worker Relationship Specialty Start Date End Date Unknown, Unknown, PCP - General 01/01/24 Erik Wesley MD [address] [place] [address] [email or web address] Historical LMR Provider 08/07/17 Samaria Mayers NP [address] [place] [address] (work) juan [email or web address] Historical LMR Provider 08/07/17 Additional Source Comments The information contained in this document represents components of the legal health record. It is not the complete legal health record.[facility]
--- OUTSIDE RECORDS SUMMARY | 2025-07-03 11:12 | XMS_ITS | Clinical Summary ---
Author Organization [facility] Address [address] [address] Care Team Providers Care Scientific Photographer Name Role Phone Samaria Mayers CLIENT SERVICES ACCOUNT MANAGER Primary Care Provider Unavailabl e Allergies Active [...] into inhaler and inhale daily 06/23/2021 Active [place]-3 1000 MG capsule Take 1 capsule by [...] patient's age to complete this topic Insurance [facility] Care Teams Scientific Photographer Relationship Specialty Start Date End Date Samaria Mayers NP PCP - General Nurse Practitioner 09/15/21
--- OUTSIDE RECORDS SUMMARY | 2025-07-03 11:12 | XMS_ITS | Encounter Summary ---
Author Organization [facility] Address [address] [place] [address] [place] [address] Phone Care Team Providers Care Tow Truck Dispatcher Name Role Phone Larisa Shelley MD Unavailable [phone] Erik Wesley MD Unavailable [phone] Samaria Mayers ELECTRIC SERVICEMAN Unavailable [phone] Samaria Mayers ELECTRIC SERVICEMAN Primary Care Provider [phone] Erik Wesley MD Unavailable [phone] Unknown, Unknown Primary Care Provider Og medrano Encounter Details Date Type Department Care Team (Late st Contact Info) Description 06/23/2021 Procedure Pass [facility], Ct Scan - [address] [address] Social History Tobacco Use Types Packs/Day Years [...] high school, GED, job training, learning the Malaysian language, technical skills, or developing parenting skills)? [...] 6:01 PM EDT Nahun Miranda RN * [place] Suicide Severity Rating Scale (Screener/Recent Self-Report) Question [...] documented as of this encounter Care Teams Tow Truck Dispatcher Relationship Specialty Start Date End Date Samaria Mayers NP [address] [place] [address] juan PCP - General Family Medicine 05/14/18 12/31/23 Unknown, Love, PCP - General 01/01/24 Larisa Shelley MD [address] [place] [address] Historical LMR Provider 08/07/17 2 Erik Wesley MD [address] [place] [address] Historical LMR Provider 08/07/17 Samaria Mayers NP [address] [place] [address] juan Historical LMR Provider 08/07/17 Erik Wesley MD [address] [place] [address] Insurance Assigned Provider 08/29/20 01/29/22 documented as of this encounter Additional Source Comments The information contained in this document represents components of the legal health record. It is not the complete legal health record.[facility]
--- OUTSIDE RECORDS SUMMARY | 2025-07-03 11:12 | XMS_ITS | Encounter Summary ---
Author Organization [facility] Address [address] [place] [address] [place] [address] Phone Care Team Providers Care Surgical Training Specialist Name Role Phone Larisa Shelley MD Unavailable [phone] Erik Wesley MD Unavailable [phone] Samaria Mayers CLINICAL ALLERGIST Unavailable [phone] Samaria Mayers CLINICAL ALLERGIST Primary Care Provider [phone] Erik Wesley MD Unavailable [phone] Unknown, Unknown Primary Care Provider Og medrano Encounter Details Date Type Department Care Team (Late st Contact Info) Description 06/23/2021 Procedure Pass [facility], Ct Scan - [address] [address] Social History Tobacco Use Types Packs/Day Years [...] high school, GED, job training, learning the Djiboutian language, technical skills, or developing parenting skills)? [...] 6:01 PM EDT Nahun Miranda RN * [place] Suicide Severity Rating Scale (Screener/Recent Self-Report) Question [...] documented as of this encounter Care Teams Surgical Training Specialist Relationship Specialty Start Date End Date Samaria Mayers NP [address] [place] [address] juan PCP - General Family Medicine 05/14/18 12/31/23 Unknown, Love, PCP - General 01/01/24 Larisa Shelley MD [address] [place] [address] Historical LMR Provider 08/07/17 2 Erik Wesley MD [address] [place] [address] Historical LMR Provider 08/07/17 Samaria Mayers NP [address] [place] [address] juan Historical LMR Provider 08/07/17 Erik Wesley MD [address] [place] [address] Insurance Assigned Provider 08/29/20 01/29/22 documented as of this encounter Additional Source Comments The information contained in this document represents components of the legal health record. It is not the complete legal health record.[facility]
--- OUTSIDE RECORDS SUMMARY | 2025-07-03 11:12 | XMS_ITS | Encounter Summary ---
Author Organization [facility] Address [address] [place] [address] [place] [address] Phone Care Team Providers Care Patch Setter Name Role Phone Larisa Shelley MD Unavailable [phone] Erik Wesley MD Unavailable [phone] Samaria Mayers BENEFIT DIRECTOR Unavailable [phone] Samaria Mayers BENEFIT DIRECTOR Primary Care Provider [phone] Erik Wesley MD Unavailable [phone] Unknown, Unknown Primary Care Provider Og medrano Encounter Details Date Type Department Care Team (Late st Contact Info) Description 07/06/2021 Procedure Pass [facility], Ct Scan - [address] [address] Social History Tobacco Use Types Packs/Day Years [...] high school, GED, job training, learning the Guinean language, technical skills, or developing parenting skills)? [...] documented as of this encounter Care Teams Patch Setter Relationship Specialty Start Date End Date Samaria Mayers NP [address] [place] [address] juan PCP - General Family Medicine 05/14/18 12/31/23 Unknown, Unknown, PCP - General 01/01/24 Larisa Shelley MD [address] [place] [address] Historical LMR Provider 08/07/17 2 Erik Wesley MD [address] [place] [address] Historical LMR Provider 08/07/17 Samaria Mayers NP [address] [place] [address] juan [email or web address] Historical LMR Provider 08/07/17 Erik Wesley MD [address] [place] [address] [email or web address] Insurance Assigned Provider 08/29/20 01/29/22 documented as of this encounter Additional Source Comments The information contained in this document represents components of the legal health record. It is not the complete legal health record.[facility]
== END 2025-07-03 10:40 | disposition home or self-care (01) ==
PROVIDERS: Emergency Provider Emergency Medicine
DX: Z48.02 Encounter for removal of sutures (principal)
CPT/HCPCS: 99283; 99284

== ENCOUNTER 2025-08-19 11:30 | Outpatient (RCR) | payer OTHER, SELFPAY | END 2025-08-22 16:42 | disposition home or self-care (01) | LOC: HO.WCC 11:30 | PROVIDERS: Visit Provider Surgery Surgical Oncology | DX: S81.012D Laceration without foreign body, left knee, subsequent encounter (principal); W22.8XXD Striking against or struck by other objects, subsequent encounter; Z87.891 Personal history of nicotine dependence | CPT/HCPCS: 97597; 99202; 99212; 99213 ==